=== PATIENT | female | born 1960 | race Caucasian/White ===

== ENCOUNTER → 2019-01-20 | Outpatient (CLI) | payer OTHER ==
[2018-05-27 11:27] VITALS: BP 101/65
[~2019-01-20] MED LIST: ASPI325T8 PO; ATOR40TA59 PO; BALS750C6 PO; CHOL500016 PO; DIAZ5TAB4 PO; DIPH1TAB PO; FENO54TA PO; NITR0.4T SL; SERT100T PO; TRAZ-118 PO; ZOLP10TA4 PO
--- NOTE | 2019-01-20 11:36 | KCIC ---
MRI Lumbar Spine without contrast History: Low back pain, degenerative disc disease, lifting injury in October Technique: Multiplanar, multi sequential noncontrast MR imaging was performed of the lumbar spine. Comparison: None Findings: Lumbar vertebral body stature is maintained. There is more advanced degenerative disc disease L5-S1, minimally at L4-5, mild disc desiccation L2-3. There is degenerative endplate change L5-S1. Conus terminates at L1. AP alignment is within normal limits. Not included on the axial images, there is buckling of the ligamentum flavum left greater than right at T11-12. L3-L4: Neural foramina and spinal canal are adequate. L4-L5: There is negligible posterior bulge. There is mild buckling of the ligamentum flavum and facet degenerative change. There is mild narrowing of the far lateral recesses greater on the left. There is minimal inferior narrowing of the left neural foramen, right neural foramen overall adequate. L5-S1: There is minimal disc osteophyte complex and bulge. There is minimal buckling of the ligamentum flavum. There is mild facet degenerative change. There is mild narrowing of the far lateral recesses, right greater than left. There is mild narrowing of the neural foramina bilaterally by disc osteophyte complex and facets. Impression: 1. There is mild narrowing of the far lateral recesses at L4-5 and L5-S1 as described. There is mild neural foramina compromise bilaterally at L5-S1 and on the left at L4-5. 2. There is more advanced degenerative disc disease at L5-S1, minimally at L4-5. There is mild spondylosis at these levels. Electronically signed by: Bhupinder Uribe MD (01/20/2019 11:34 AM) [id number]
== END | disposition home or self-care (01) ==
LOC: KCIC MRI 10:06
PROVIDERS: ATTEND Physician Assistant
DX: M51.37 Other intervertebral disc degeneration, lumbosacral region (principal); M48.07 Spinal stenosis, lumbosacral region; M51.27 Other intervertebral disc displacement, lumbosacral region; M47.816 Spondylosis without myelopathy or radiculopathy, lumbar region; M25.78 Osteophyte, vertebrae
CPT/HCPCS: 72148